=== PATIENT | female | born 1985 | race Caucasian/White ===

== ENCOUNTER 2019-05-14 19:05 | Emergency (ER) | payer SELFPAY ==
[2019-05-14] MEDS ORDERED: Prochlorperazine 10 MG/2 ML SDV IVPUSH ONE (19:18)
[2019-05-14] MEDS ORDERED: Sodium Chloride 0.9% 10 ML Syringe FLUSH PRN (19:18)
[2019-05-14] MEDS ORDERED: diphenhydrAMINE 50 MG/ML SDV IVPUSH ONE (19:19)
[2019-05-14] MEDS ORDERED: Ketorolac 30 MG/ML SDV IVPUSH ONE (19:19)
--- NOTE | 2019-05-14 19:26 | EDM.PDOC ---
ED HPI GENERAL MEDICAL PROBLEM - General Chief Complaint: Headache Stated Complaint: MIGRAINE Time Seen by Provider: 05/14/19 19:13 Source of Information: Reports: Patient History Limitations: Reports: No Limitations - History of Present Illness INITIAL COMMENTS - FREE TEXT/NARRATIVE: The patient presents with a migraine. This started about 12 today. She tried some aleve and excedrin with no relief. She has a history of migraines. She has no numbness or weakness. She has no fever or chills. She has no vision changes but she has some photophobia. She has some nausea but no vomiting. Onset: Gradual Duration: Hour(s): Location: Reports: Head Quality: Reports: Sharp Severity: Severe Improves with: Reports: None Worsens with: Reports: None Associated Symptoms: Reports: Headaches, Nausea/Vomiting. Denies: Cough, Fever/ Chills, Shortness of Breath Headache Pain Score (Numeric/FACES): 8 - Related Data Allergies Allergy/AdvReac Type Severity Reaction Status Date / Time No Known Allergies Allergy Verified 05/14/19 19:14 Home Meds: Home Meds Sertraline [Zoloft] 100 mg PO DAILY 05/14/19 [History] Past Medical History Neurological History: Reports: Migraines Psychiatric History: Reports: Depression ED ROS GENERAL - Review of Systems Review Of Systems: See Below Constitutional: Reports: No Symptoms HEENT: Reports: No Symptoms Respiratory: Reports: No Symptoms Cardiovascular: Reports: No Symptoms Endocrine: Reports: No Symptoms GI/Abdominal: Reports: Nausea. Denies: Abdominal Pain, Vomiting : Reports: No Symptoms Musculoskeletal: Reports: No Symptoms Neurological: Reports: Headache - Physical Exam Exam: See Below Exam Limited By: No Limitations General Appearance: Alert, No Apparent Distress Ears: Normal External Exam Nose: Normal Inspection Head Exam: Atraumatic, Normocephalic Neck: Normal Inspection Respiratory/Chest: No Respiratory Distress, Lungs Clear, Normal Breath Sounds Cardiovascular: Regular Rate, Rhythm, No Edema, No Murmur GI/Abdominal: Soft, Non-Tender, No Organomegaly, No Mass Neuro Exam (Abbreviated): Alert, Oriented, No Motor/Sensory Deficits Course - Vital Signs Last Recorded V/S: Last Vital Signs Temp 98.6 F 05/14/19 19:13 Pulse 97 05/14/19 19:13 Resp 16 05/14/19 19:13 BP 102/74 05/14/19 19:13 Pulse Ox 100 05/14/19 19:13 - Orders/Labs/Meds Orders: Active Orders 24 hr Category Date Time Status Peripheral IV Care [RC] . DIRECTED Care 05/14/19 19:18 Active Sodium Chloride 0.9% [Saline Flush] Med 05/14/19 19:18 Active 10 ml FLUSH ASDIRECTED PRN Peripheral IV Insertion Adult [OM.PC] Routine Oth 05/14/19 19:18 Ordered Medication Orders Sodium Chloride (Saline Flush) 10 ml FLUSH ASDIRECTED PRN PRN Reason: Keep Vein Open Last Admin: 05/14/19 19:31 Dose: 10 ml Meds: Medications Generic Name Dose Route Start Last Admin Trade Name Freq PRN Reason Stop Dose Admin Sodium Chloride 10 ml 05/14/19 19:18 05/14/19 19:31 Saline Flush FLUSH 10 ml ASDIRECTED PRN Administration Keep Vein Open Discontinued Medications Generic Name Dose Route Start Last Admin Trade Name Freq PRN Reason Stop Dose Admin Diphenhydramine HCl 50 mg 05/14/19 19:19 05/14/19 19:31 Benadryl IVPUSH 05/14/19 19:20 50 mg ONETIME ONE Administration Ketorolac Tromethamine 30 mg 05/14/19 19:19 05/14/19 19:31 Toradol IVPUSH 05/14/19 19:20 30 mg ONETIME ONE Administration Prochlorperazine Edisylate 10 mg 05/14/19 19:18 05/14/19 19:31 Compazine IVPUSH 05/14/19 19:19 10 mg ONETIME ONE Administration - Re-Assessments/Exams Free Text/Narrative Re-Assessment/Exam: 05/14/19 19:26 I ordered an IV saline lock, compazine 10mg IV, toradol 30mg IV and benadryl 50mg IV. 05/14/19 20:06 She feels better. I will discharge her home. Departure - Departure Time of Disposition: 20:10 Disposition: Home, Self-Care 01 Condition: Good Clinical Impression: Migraine - Discharge Information *PRESCRIPTION DRUG MONITORING PROGRAM REVIEWED*: Not Applicable *COPY OF PRESCRIPTION DRUG MONITORING REPORT IN PATIENT DANA: Not Applicable Referrals: PCP,None [Primary Care Provider] - Forms: ED Department Discharge Additional Instructions: Go home and rest in a dark quiet room. Please return if you are worse. Sepsis Event Note - Evaluation Sepsis Screening Result: No Definite Risk - Focused Exam Vital Signs: Vital Signs Temp Pulse Resp BP Pulse Ox 05/14/19 19:13 98.6 F 97 16 102/74 100 Date Exam was Performed: 05/14/19 Time Exam was Performed: 20:06 - My Orders Last 24 Hours: My Active Orders 05/14/19 19:18 Peripheral IV Care [RC] . DIRECTED Sodium Chloride 0.9% [Saline Flush] 10 ml FLUSH ASDIRECTED PRN Peripheral IV Insertion Adult [OM.PC] Routine - Assessment/Plan Last 24 Hours: My Active Orders 05/14/19 19:18 Peripheral IV Care [RC] . DIRECTED Sodium Chloride 0.9% [Saline Flush] 10 ml FLUSH ASDIRECTED PRN Peripheral IV Insertion Adult [OM.PC] Routine
== END 2019-05-14 20:22 | disposition home or self-care (01) ==
LOC: JD.ED 19:05
DX: G43.909 Migraine, unspecified, not intractable, without status migrainosus (principal); F32.9 Major depressive disorder, single episode, unspecified; Z79.899 Other long term (current) drug therapy
CPT/HCPCS: 96374; 96375; 99283; J0780; J1200; J1885

== ENCOUNTER 2019-05-25 13:51 | Emergency (ER) | payer SELFPAY ==
--- NOTE | 2019-05-25 14:48 | EDM.PDOC ---
ED HPI GENERAL MEDICAL PROBLEM - General Chief Complaint: Eye Problems Stated Complaint: R EYE PAIN Time Seen by Provider: 05/25/19 14:01 Source of Information: Reports: Patient History Limitations: Reports: No Limitations - History of Present Illness INITIAL COMMENTS - FREE TEXT/NARRATIVE: The patient presents with some redness and swelling below her right eye and some black stool. This started a couple days ago. She has no fever or chills. She has no cough, congestion, runny nose, chest pain, shortness of breath, abdominal pain, nausea or vomiting. 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 last night - Related Data Allergies Allergy/AdvReac Type Severity Reaction Status Date / Time No Known Allergies Allergy Verified 05/14/19 19:14 Home Meds: Home Meds Sertraline [Zoloft] 100 mg PO DAILY 05/14/19 [History] Clindamycin HCl 450 mg PO TID #90 capsule 05/25/19 [Rx] Etonogestrel [Nexplanon] 1 dose SUBCUT ASDIRECTED 05/25/19 [History] Past Medical History HEENT History: Reports: Glaucoma Other HEENT History: to rt eye Genitourinary History: Reports: UTI, Recurrent Neurological History: Reports: Migraines Psychiatric History: Reports: Depression - Infectious Disease History Infectious Disease History: Reports: C-Difficile - Past Surgical History GI Surgical History: Reports: Appendectomy Social & Family History - Family History Family Medical History: Noncontributory - Tobacco Use Smoking Status *Q: Current Every Day Smoker Years of Tobacco use: 17 Packs/Tins Daily: 0.5 - Caffeine Use Caffeine Use: Reports: Coffee, Energy Drinks - Recreational Drug Use Recreational Drug Use: No ED ROS GENERAL - Review of Systems Review Of Systems: See Below Constitutional: Reports: No Symptoms HEENT: Reports: Other (facial redness and swelling) Respiratory: Reports: No Symptoms Cardiovascular: Reports: No Symptoms Endocrine: Reports: No Symptoms GI/Abdominal: Reports: No Symptoms : Reports: No Symptoms Musculoskeletal: Reports: No Symptoms ED EXAM GENERAL W FULL EYE - Physical Exam Exam: See Below Exam Limited By: No Limitations General Appearance: Alert, No Apparent Distress Eyelids: Right: Normal Appearance Conjunctiva & Sclera: Right: Normal Appearance Head: Other (Erythema and edema below the right eye) Neck: Normal Inspection, Supple, Non-Tender Respiratory/Chest: No Respiratory Distress, Lungs Clear, Normal Breath Sounds Cardiovascular: Regular Rate, Rhythm, No Edema, No Murmur GI/Abdominal: Soft, Non-Tender, No Organomegaly, No Mass Rectal (Males) Exam: Normal Exam, Heme - Stool Course - Vital Signs Last Recorded V/S: Last Vital Signs Temp 99 F 05/25/19 13:57 Pulse 98 05/25/19 13:57 Resp 16 05/25/19 13:57 BP 108/69 05/25/19 13:57 Pulse Ox 99 05/25/19 13:57 - Re-Assessments/Exams Free Text/Narrative Re-Assessment/Exam: 05/25/19 14:53 She has some facial cellulitis. I will get her on climdamycin. She had no blood on rectal exam. Departure - Departure Time of Disposition: 15:00 Disposition: Home, Self-Care 01 Condition: Good Clinical Impression: Periorbital cellulitis of right eye - Discharge Information *PRESCRIPTION DRUG MONITORING PROGRAM REVIEWED*: Not Applicable *COPY OF PRESCRIPTION DRUG MONITORING REPORT IN PATIENT DANA: Not Applicable Prescriptions: Clindamycin HCl 450 mg PO TID #90 capsule Referrals: PCP,None [Primary Care Provider] - Forms: ED Department Discharge Additional Instructions: Take the clindamycin 3 pills 3 times per day for 10 days. Take tylenol or motrin for pain. Put warm compresses on your face 3 times per day for 5 days. Please return if you are worse. Sepsis Event Note - Evaluation Sepsis Screening Result: No Definite Risk - Focused Exam Vital Signs: Vital Signs Temp Pulse Resp BP Pulse Ox 05/25/19 13:57 99 F 98 16 108/69 99 Date Exam was Performed: 05/25/19 Time Exam was Performed: 14:50
== END 2019-05-25 15:22 | disposition home or self-care (01) ==
LOC: JD.ED 13:51
DX: L03.213 Periorbital cellulitis (principal); F32.9 Major depressive disorder, single episode, unspecified; F17.210 Nicotine dependence, cigarettes, uncomplicated; Z79.899 Other long term (current) drug therapy
CPT/HCPCS: 99283